=== PATIENT | female | born 1965 | race Caucasian/White ===

== ENCOUNTER → 2020-07-17 | Outpatient (CLI) | payer BC ==
[2020-07-17 12:33] LABS: LDL Cholesterol,Calculated 126.6 mg/dL (0.0-131.0); VLDL Calculation 17.4 mg/dL (5.00-40.00)
[2020-07-17 12:41] LABS: Estradiol 57.8 pg/mL; Follicle Stimulating Hormone 59.3 mIU/mL
== END | disposition home or self-care (01) ==
LOC: LABWHC1 08:00
PROVIDERS: ATTEND Obstetrics & Gynecology
DX: E03.9 Hypothyroidism, unspecified (principal); E78.5 Hyperlipidemia, unspecified; N95.1 Menopausal and female climacteric states
CPT/HCPCS: 36415; 80061; 82670; 83001; 84144; 84439; 84443; 84481